=== PATIENT | male | born 1975 | race Caucasian/White ===

== ENCOUNTER 2016-10-26 09:00 | Inpatient (IN) | payer OTHER ==
--- NOTE | ~2016-10-26 | HP ---
Unit #: [id number] #: [id number] Patient: HARMONY OSMAN [id number] [place] [address] [id number] MR#: [id number] NAME: HARMONY OSMAN ROOM: P182 Age: 41 Sex: M Admission Date: 10/26/2016 : 1975 Attending Physician: Bk Barger M.D. Admitting Physician: Bk Barger M.D. Primary Care Physician: Generic Doctor Not In System HISTORY AND PHYSICAL Harmony is a 41 year old admitted and discharged within the first 24 hours. He was not seen for an H and P. Dictated by... Queenie Farah P.A.-C. for Karina Castillo/kerrie TD: 10/26/2016 20:25 JOB #: [id number] HISTORY AND PHYSICAL Page 1 of 1 X Queenie Farah X HISTORY AND PHYSICAL
--- NOTE | ~2016-10-26 | PA ---
Unit #: [id number] #: [id number] Patient: HARMONY OSMAN [id number] [facility] [address] [place] [address] [id number] MR#: [id number] NAME: HARMONY OSMAN. ROOM: P182 Age: 41 Sex: M Admission Date: 10/26/2016 : 1975 Date of Assessment: 10/26/2016 Attending Physician: Bk Barger M.D. Admitting Physician: Bk Barger M.D. Primary Care Physician: Generic Doctor Not In System PSYCHIATRIC ASSESSMENT IDENTIFYING INFORMATION The patient is a 41-year-old white male admitted to the [facility] unit with increasing abuse of alcohol. He had presented with a blood alcohol level of .157. INFORMANT(S) Patient. RELIABILITY Good. CHIEF COMPLAINT I need out of here. HISTORY OF PRESENT ILLNESS The patient is a 41-year-old white male admitted after he had presented to this facility early this morning with a blood alcohol of .157. During that period of time, the patient reported positive suicidal ideation with plan to cut his wrist or jump from a bridge. The patient reports that he has been drinking a fifth of hard liquor on a daily basis. When seen by this physician today, the patient is in much brighter spirits and is requesting discharge from the hospital. The patient attributes his statements of suicidality to his state of intoxication when evaluated. He is currently vehemently denying suicidal ideation citing a wish to leave the hospital to return to work at [employer] to pay child support and to celebrate his father's birthday. He has been on treatment in the past and wishes to begin treatment in partial hospitalization program in the near future to address his ongoing alcohol abuse. PAST PSYCHIATRIC HISTORY None. Patient has been in chemical dependence treatment in the past. FAMILY HISTORY Noncontributory. SOCIAL HISTORY The patient works at [employer]. He has an associate degree from [employer]. He has been drinking a fifth of hard liquor on a daily basis. MEDICATION HISTORY The patient is currently prescribed Viibryd 40 mg daily by his primary care physician. Unit #: [id number] #: [id number] Patient: HARMONY OSMAN ALLERGIES None reported. MENTAL STATUS EXAM At this time, reveals the patient to be a well-developed, well-nourished white male appearing stated age. He is in no apparent physical distress at time of examination. He is awake, alert, oriented in all spheres. His mood is euthymic. His affect full range. Speech is relevant and coherent. There are no gross deficits in memory or cognition noted. Intelligence is judged to be in the average range based on fund of knowledge. The patient is cooperative throughout the interview. He is currently denying suicidal/homicidal ideation or psychotic features. He exhibits no signs or symptoms of withdrawal. His judgement and insight appear to be intact. ASSETS AND LIABILITIES Patient's assets, motivation for change. Liabilities, ongoing substance use. ADMITTING DIAGNOSES 1. Alcohol use disorder. 2. Dysthymic disorder. PSYCHIATRIC PLAN/TREATMENT GOALS The patient is requesting discharge and at this point does not seem to meet criteria for involuntary hospitalization. He is future oriented and agreement with a plan for follow up in partial hospitalization program in the [facility]. I will ask the patient's director social to see him regarding this and will plan discharge to take place today as the patient clearly does not meet criteria for involuntary hospitalization. Dictated by... Bk Barger M.D. VIVIANA/kerrie TD: 10/26/2016 17:06 JOB #: [id number] PSYCHIATRIC ASSESSMENT Page 1 of 1 X Bk Barger MD X PSYCHIATRIC ASSESSMENT
--- NOTE | ~2016-10-26 | DS ---
Unit #: [id number] #: [id number] Patient: HARMONY OSMAN [id number] [facility] [address] [place] [address] [id number] MR#: [id number] NAME: HARMONY OSMAN. ROOM: 82 Age: 41 Sex: M Admission Date: 10/26/2016 : 1975 Discharge Date: 10/26/2016 Attending Physician: Bk Barger M.D. Primary Care Physician: Generic Doctor Not In System DISCHARGE SUMMARY REASON FOR ADMISSION The patient is a 41-year-old white male, admitted to the [facility] unit after he presented to this facility reporting positive use of alcohol and some suicidal ideation. HOSPITAL COURSE The patient was admitted to the [facility] unit after he had made threats of suicide while intoxicated. When seen by this physician on the afternoon of 10/26/2016, the patient was extremely contrite over the threats made and stated that he would " ." The patient reported history of positive response to Viibryd which initially had been started by Dr. Maximo Gallardo at [facility]. During treatment at that facility, the patient expressed future orientation citing a need to return to work at [employer] as well as continuing care for his 10-year-old son. 10-year-old son as reason to remain alive. FINAL DIAGNOSES Alcohol use disorder; dysthymic disorder; substance-induced mood disorder. DISPOSITION ON DISCHARGE The patient is discharged on the following medications: Viibryd 40 mg daily. DISCHARGE INSTRUCTIONS No dietary or physical restrictions were placed upon the patient at the time of discharge. FOLLOWUP Followup will take place through the auspices of community mental health resources in the [facility]. PROGNOSIS The patient's prognosis is considered fair. Dictated by... Bk Barger M.D. CB/star TD: 10/26/2016 18:06 JOB #: [id number] Unit #: [id number] #: [id number] Patient: HARMONY OSMAN DISCHARGE SUMMARY Page 1 of 1 X Bk Barger MD DISCHARGE SUMMARY
== END 2016-10-26 16:45 | DRG 897 ==
LOC: P1E 11:10 → POF 11:10 → P1E 12:20
DX: F10.129 Alcohol abuse with intoxication, unspecified (principal); F10.14 Alcohol abuse with alcohol-induced mood disorder; R45.851 Suicidal ideations; Y90.6 Blood alcohol level of 120-199 mg/100 ml; F34.1 Dysthymic disorder